=== PATIENT | male | born 1955 | race Caucasian/White ===

== ENCOUNTER 2023-06-10 14:08 | Outpatient (CLI) | payer MEDICARE, SELFPAY ==
--- NOTE | 2023-06-10 14:00 | RT.EKG_ITS ---
APPROVED REPORT Exam: Resting ECG Reason for Exam: chest discomfort Patient Location: O HR:59 bpm ECG Measurements Heart Rate 59 AXIS SC 205 P 60 QRSd 99 QRS -29 QT 401 T 55 QTc 398 Conclusion Sinus rhythm...normal P axis, V-rate left anterior fascicular block Abnormal R-wave progression, early transition...QRS area>0 in V2
== END 2023-06-10 14:09 | disposition home or self-care (01) ==
LOC: DI.CM 14:09
PROVIDERS: Visit Provider Nurse Practitioner Family
DX: R07.89 Other chest pain (principal)
CPT/HCPCS: 93010